=== PATIENT | male | born 1965 | race Caucasian/White ===

== ENCOUNTER 2020-12-22 15:22 | Emergency (ER) | payer SELFPAY ==
[2020-12-22] MEDS ORDERED: HYDROCODONE/APAP 10/325 TAB ONE (15:44)
--- NOTE | 2020-12-22 16:41 | RAD REPORT ---
EXAM DESCRIPTION: RAD - Femur Right - 12/22/2020 4:26 pm CLINICAL HISTORY: PAIN, persistent pain following fall COMPARISON: Tib Fib Right dated 12/22/2020 FINDINGS: No fracture, dislocation or periosteal reaction noted. No acute or suspicious bony finding . Advanced for age degenerative changes are present in the right knee joint. Advanced medial compartm ent and moderate lateral compartment joint space narrowing is present with marginal spurring. Patella femoral joint space narrowing and marginal spurring are present. Joint effusion is not suspected. No air or foreign body in the soft tissues. IMPRESSION: No fracture or acute right femur finding. 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
--- NOTE | 2020-12-22 16:43 | RAD REPORT ---
EXAM DESCRIPTION: RAD - Tib Fib Right - 12/22/2020 4:26 pm CLINICAL HISTORY: PAIN, fall with leg pain COMPARISON: Femur Right dated 12/22/2020 FINDINGS: No fracture is identified. There is no dislocation or periosteal reaction noted. Patient h as advanced for age tri compartment degenerative change most notable in the medial compartment. No teto int effusion seen. No acute or suspicious bony finding. Flattening of the plantar arch is evident on the lateral projection. No foreign body or other soft tissue abnormality. IMPRESSION: Advanced for age tri compartment knee joint degenerative change. Patient has a flattened plantar arch. No acute bone or joint finding.
--- NOTE | 2020-12-22 16:49 | ER ---
Nurse's Notes [facility] Name: Reynaldo Cloud Age: 55 yrs Sex: Male : 1965 Arrival Date: 12/22/2020 Time: 15:22 Bed 19 Private MD: Diagnosis: Sprain of other specified parts of right knee Presentation: 12/22 15:29 Chief complaint: Patient states: Fell from loading dock yesterday. Pain on R knee. ca1 Coronavirus screen: Client denies travel out of the [place] in the last 14 days. At this time, the client does not indicate any symptoms associated with coronavirus-19. Ebola Screen: Patient negative for fever greater than or equal to 101.5 degrees Fahrenheit, and additional compatible Ebola Virus Disease symptoms Patient denies exposure to infectious person. Patient denies travel to an Ebola-affected area in the 21 days before illness onset. No symptoms or risks identified at this time. Initial Sepsis Screen: Does the patient meet any 2 criteria? No. Patient's initial sepsis screen is negative. Does the patient have a suspected source of infection? No. Patient's initial sepsis screen is negative. Risk Assessment: Do you want to hurt yourself or someone else? Patient reports no desire to harm self or others. Onset of symptoms was December 22, 2020. 15:29 Method Of Arrival: Ambulatory ca1 15:29 Acuity: LEIGH 4 aa5 Historical: - Allergies: 15:34 PENICILLINS; ca1 15:34 Ultram; ca1 15:34 NSAIDS; ca1 - Home Meds: 15:34 None [Active]; ca1 - PMHx: 15:34 None; ca1 - PSHx: 15:34 Gastric Bypass; Hernia repair; ca1 - Immunization history:: Flu vaccine is up to date. - Social history:: Smoking status: Patient denies any tobacco usage or history of. Screenin:25 Abuse screen: Denies threats or abuse. Nutritional screening: No deficits noted. rb3 Tuberculosis screening: No symptoms or risk factors identified. Fall Risk Fall in past 12 months (25 points). Secondary diagnosis (15 points) impaired mobility, No IV (0 pts). Ambulatory Aid- None/Bed Rest/Nurse Assist (0 pts). Gait- Impaired (20 pts.). Mental Status- Oriented to own ability (0 pts). Total Shrestha Fall Scale indicates High Risk Score (45 or more points). Fall prevention measures have been instituted. Side Rails Up X 2 Placed Close to Nursing Station Frequent Obs/Assessments Occuring As available patient and family educated on Fall Prevention Program and Strategies. Assessment: 15:25 General: Appears uncomfortable, Behavior is calm, cooperative. General: Fell off a rb3 loading dock and heard a big pop in his right knee.. Pain: Complains of pain in right knee Pain currently is 9 out of 10 on a pain scale. Aggravated by weight bearing. Neuro: Level of Consciousness is awake, alert, obeys commands, Oriented to person, place, time, situation. Cardiovascular: Patient's skin is warm and dry. Respiratory: Airway is patent Respiratory effort is even, unlabored, Respiratory pattern is regular, symmetrical. GI: No signs and/or symptoms were reported involving the gastrointestinal system. : No signs and/or symptoms were reported regarding the genitourinary system. Musculoskeletal: Range of motion: limited in right knee. 16:22 Reassessment: Patient appears in no apparent distress at this time. No changes from rb3 previously documented assessment. 17:07 Reassessment: Pt. does not want to knee immobilizer. He wants to know if he can use his rb3 knee brace at home. Provider notified. Received verbal order that the pt. can use his brace at home. 100% verbal read back. Vital Signs: 15:29 BP 150 / 100; Pulse 103; Resp 18 S; Temp 98(TE); Pulse Ox 99% on R/A; Weight 90.72 kg ca1 (R); Height 5 ft. 9 in. (175.26 cm) (R); Pain 9/10; 16:30 BP 130 / 99; Pulse 66; Resp 17; Pulse Ox 100% ; rb3 15:29 Body Mass Index 29.53 (90.72 kg, 175.26 cm) ca1 ED Course: 15:22 Patient arrived in ED. am2 15:23 Gilma Wagner FNP-C is PHCP. kb 15:23 Dylon Michelle MD is Attending Physician. kb 15:23 Elizabeth Murphy, REGINALDO is Primary Nurse. rb3 15:25 Patient has correct armband on for positive identification. Bed in low position. Call rb3 light in reach. Side rails up X 1. Pulse ox on. NIBP on. 15:31 Triage completed. ca1 15:34 Arm band placed on right wrist. ca1 16:26 Femur Right XRAY In Process Unspecified. EDMS 16:26 Tib Fib Right XRAY In Process Unspecified. EDMS 17:00 Crutch training done. Knee immobilizer applied on right knee. mh5 17:13 No provider procedures requiring assistance completed. Patient did not have IV access rb3 during this emergency room visit. Administered Medications: 15:28 Drug: [place] 10 mg-325 mg 1 tabs Route: PO; rb3 16:18 Follow up: Response: No adverse reaction; Pain is decreased rb3 Outcome: 16:49 Discharge ordered by . kb 17:13 Discharged to home with crutches. rb3 17:13 Condition: stable 17:13 Discharge instructions given to patient, Instructed on discharge instructions, follow up and referral plans. medication usage, Demonstrated understanding of instructions, follow-up care, medications, Prescriptions given X 1. 17:14 Patient left the ED. rb3 Signatures: Dispatcher [employer] EDGilma Woo, BRICK PITCHER-C BRICK PITCHER-CkCarolyn Freeman RN RN aa5 Katelynn Burgos 5 Alejandra Murphy am2 Treva Rodgers RN RN ca1 Elizabeth Murphy RN RN rb3 Corrections: (The following items were deleted from the chart) 16:29 15:29 Acuity: LEIGH 5 ca1 aa5
--- NOTE | 2020-12-22 16:49 | EDPHYS ---
Physician Documentation [facility] Name: Reynaldo Cloud Age: 55 yrs Sex: Male : 1965 Arrival Date: 12/22/2020 Time: 15:22 Bed 19 Private MD: ED Physician Dylon Michelle HPI: 12/22 18:58 This 55 yrs old Male presents to ER via Ambulatory with complaints of Fall kb Injury, Leg Injury. 18:58 Details of fall: The patient fell from a height, loading dock. Onset: The kb symptoms/episode began/occurred yesterday. Associated injuries: The patient sustained right knee, decreased range of motion, painful injury, swelling. Severity of symptoms: At their worst the symptoms were moderate, in the emergency department the symptoms are unchanged. The patient has not experienced similar symptoms in the past. The patient has not recently seen a physician. Pt reports he twisted his right knee when he misstepped and fell off of a loading dock yesterday. States he has bad knees anyway, but his pain is worse. Historical: - Allergies: 15:34 PENICILLINS; ca1 15:34 Ultram; ca1 15:34 NSAIDS; ca1 - Home Meds: 15:34 None [Active]; ca1 - PMHx: 15:34 None; ca1 - PSHx: 15:34 Gastric Bypass; Hernia repair; ca1 - Immunization history:: Flu vaccine is up to date. - Social history:: Smoking status: Patient denies any tobacco usage or history of. ROS: 18:57 Constitutional: Negative for fever, chills, and weight loss, Skin: Negative for injury, kb rash, and discoloration, Neuro: Negative for headache, weakness, numbness, tingling, and seizure. 18:57 MS/extremity: Positive for injury or acute deformity, decreased range of motion, pain, swelling, tenderness, of the right knee. Exam: 18:56 Constitutional: This is a well developed, well nourished patient who is awake, alert, kb and in no acute distress. Head/Face: Normocephalic, atraumatic. Respiratory: Respirations even and unlabored. No increased work of breathing, no retractions or nasal flaring. Skin: Warm, dry with normal turgor. Normal color. Neuro: Awake and alert, GCS 15, oriented to person, place, time, and situation. Moves all extremities. Normal gait. 18:56 Musculoskeletal/extremity: Extremities: grossly normal except: noted in the right knee: decreased ROM, pain, swelling, tenderness, ROM: limited active range of motion due to pain, in the right knee, Circulation is intact in all extremities. Sensation intact. Weight bearing: is unable to bear weight. Vital Signs: 15:29 BP 150 / 100; Pulse 103; Resp 18 S; Temp 98(TE); Pulse Ox 99% on R/A; Weight 90.72 kg ca1 (R); Height 5 ft. 9 in. (175.26 cm) (R); Pain 9/10; 16:30 BP 130 / 99; Pulse 66; Resp 17; Pulse Ox 100% ; rb3 15:29 Body Mass Index 29.53 (90.72 kg, 175.26 cm) ca1 MDM: 15:23 Patient medically screened. kb 16:45 Data reviewed: vital signs, nurses notes. Data interpreted: Pulse oximetry: on room air kb is 99 %. Interpretation: normal. Counseling: I had a detailed discussion with the patient and/or guardian regarding: the historical points, exam findings, and any diagnostic results supporting the discharge/admit diagnosis, radiology results, the need for outpatient follow up, a orthopedic surgeon, to return to the emergency department if symptoms worsen or persist or if there are any questions or concerns that arise at home. 12/22 15:28 Order name: Femur Right XRAY; Complete Time: 16:44 kb 12/22 15:28 Order name: Tib Fib Right XRAY; Complete Time: 16:44 kb 12/22 16:46 Order name: Misc. Order: knee brace; Complete Time: 17:00 kb 12/22 16:46 Order name: Crutches; Complete Time: 16:59 kb Administered Medications: 15:28 Drug: [place] 10 mg-325 mg 1 tabs Route: PO; rb3 16:18 Follow up: Response: No adverse reaction; Pain is decreased rb3 Disposition: 12/22/20 16:49 Discharged to Home. Impression: Sprain of other specified parts of right knee. - Condition is Stable. - Discharge Instructions: Knee Sprain, [id number]. - Prescriptions for Tylenol- Codeine #3 300-30 mg Oral Tablet - take 2 tablets by ORAL route every 4-6 hours As needed; 16 tablet. - Medication Reconciliation Form, Thank You Letter, Antibiotic Education, Prescription Opioid Use form. - Follow up: Emergency Department; When: As needed; Reason: Worsening of condition. Follow up: Private Physician; When: 2 - 3 days; Reason: Recheck today's complaints, Continuance of care, Re-evaluation by your physician. Addendum: 12/23/2020 19:30 Co-signature as Attending Physician, Dylon Michelle MD. m a2 Signatures: Dispatcher [employer] EDGilma Woo, MARBLE COPER-C MARBLE COPER-CkDylon Segovia MD MD ma2 Treva Rodgers RN RN ca1 Elizabeth Murphy RN RN rb3 Corrections: (The following items were deleted from the chart) 12/22 16:46 16:45 Darrell wrap-joint ordered. kb kb 17:14 16:49 12/22/2020 16:49 Discharged to Home. Impression: Sprain of other specified parts rb3 of right knee. Condition is Stable. Forms are Medication Reconciliation Form, Thank You Letter, Antibiotic Education, Prescription Opioid Use. Follow up: Emergency Department; When: As needed; Reason: Worsening of condition. Follow up: Private Physician; When: 2 - 3 days; Reason: Recheck today's complaints, Continuance of care, Re-evaluation by your physician. kb
[2020-12-22 17:19] VITALS: TEMP 98
[2020-12-22 17:20] VITALS: BP 130/99; O2SAT 100
== END 2020-12-22 17:14 | disposition home or self-care (01) ==
LOC: ER 15:22
DX: S83.8X1A Sprain of other specified parts of right knee, initial encounter (principal); W17.89XA Other fall from one level to another, initial encounter; Y93.89 Activity, other specified; Y92.62 Dock or shipyard as the place of occurrence of the external cause; Z88.0 Allergy status to penicillin; Z88.6 Allergy status to analgesic agent
CPT/HCPCS: 99284